=== PATIENT | male | born 1980 | race Caucasian/White ===

== ENCOUNTER 2018-06-16 17:36 | Emergency (ER) | payer BC ==
[2018-06-16 17:57] VITALS: BP 133/87
--- NOTE | 2018-06-16 18:12 | UC ---
Skin Complaint HPI - HPI Summary HPI Summary: C/O rash on lower back x several weeks, no itching. Itching on the arms during that time frame. - History of Current Complaint Chief Complaint: UCSkin Stated Complaint: RASH Hx Obtained From: Patient Onset/Duration: Gradual Onset, Lasting Weeks - 2 Timing: Constant Onset Severity: Mild Current Severity: Mild Pain Intensity: 0 Location: Discrete - middle lower back and right lower back. Character: Pruritus, Raised Aggravating Factor(s): Nothing Alleviating Factor(s): Nothing Associated Signs & Symptoms: Positive: Rash - Allergy/Home Medications Allergies/Adverse Reactions: Allergies Allergy/AdvReac Type Severity Reaction Status Date / Time No Known Allergies Allergy Verified 06/16/18 17:49 Home Medications: Home Medications Aspirin [Miguel Chewable Aspirin] 81 mg PO DAILY 06/16/18 [History Confirmed ] Atorvastatin* [Lipitor 40 MG*] 40 mg PO DAILY 06/16/18 [History Confirmed ] Flecainide TAB* [Tambocor TAB*] 50 mg PO BID 06/16/18 [History Confirmed ] Metoprolol Tartrate 25 mg PO BID 06/16/18 [History Confirmed 06/16/18] Nicotine Inhaler* 10 mg PO Q12HR PRN 06/16/18 [History Confirmed 06/16/18] Nicotine PATCH 21 MG/24 HR* 1 patch TOPICAL DAILY 06/16/18 [History Confirmed ] PMH/Surg Hx/FS Hx/Imm Hx Cardiovascular History: Cardiac Disease - Surgical History Surgical History: Yes Surgery Procedure, Year, and Place: Cardiac Cath 04/2018- No Stent- [facility] - Family History Known Family History: Positive: Cardiac Disease, Hypertension, Other - Positve FMH of myalgia - Social History Occupation: Employed Full-time Lives: With Family Alcohol Use: Occasionally Substance Use Type: None Smoking Status (MU): Light Every Day Tobacco Smoker Type: Cigarettes Amount Used/How Often: 6 cig/day Length of Time of Smoking/Using Tobacco: 23 Years Have You Smoked in the Last Year: Yes Household Exposure Type: Cigarettes Cessation Counseling: Patient Advised to Stop - Immunization History Most Recent Influenza Vaccination: Not the 2015/2016 Season Review of Systems All Other Systems Reviewed And Are Negative: Yes Skin: Positive: Rash Is Patient Immunocompromised?: No Physical Exam Triage Information Reviewed: Yes Appearance: Well-Appearing, No Pain Distress, Well-Nourished Vital Signs: Initial Vital Signs Temp 98.3 F 06/16/18 17:51 Pulse 74 06/16/18 17:51 Resp 16 06/16/18 17:51 BP 133/87 06/16/18 17:51 Pulse Ox 95 06/16/18 17:51 Vital Signs Reviewed: Yes Eyes: Positive: Conjunctiva Clear ENT: Positive: Pharynx normal, Nasal congestion, TMs normal Neck exam: Normal Respiratory: Positive: Lungs clear Cardiovascular Exam: Normal Musculoskeletal Exam: Normal Neurological Exam: Normal Psychological Exam: Normal Skin: Positive: Rashes - papular scaling rash middle lower back Course/Dx - Differential Diagnoses - Skin Complaint Differential Diagnoses: Contact Dermatitis, Drug Rash, Eczema, Local Allergic Reaction - Diagnoses Provider Diagnosis: Atopic dermatitis Discharge - Sign-Out/Discharge Documenting (check all that apply): Patient Departure All imaging exams completed and their final reports reviewed: No Studies - Discharge Plan Condition: Stable Disposition: HOME Prescriptions: Betamethasone Dipropionate 0.05 % TOPICAL BID #50 gm Patient Education Materials: Eczema (ED), Betamethasone Dipropionate (On the skin) Referrals: No Primary Care Phys,NOPCP [Primary Care Provider] - Additional Instructions: Smoking Cessation Tricks. 1. Cut down by 1 cigarette per day every 2-3 days. Write the number of smokes for that day on the calendar. 2. Identify triggers to smoking: after meals, on the phone, in the car, with coffee, on breaks at work, etc. 3. Formulate a plan with a behavior to replace the smoking. Fireballs in the car , doodle pad on the phone, flavored creamer for the coffee, go for a walk after a meal or on break at work. 4. For stress smokes do deep breathing relaxation. Breath deep in through the nose hold the breath in for a few seconds then breath out slowly through the mouth. - Billing Disposition and Condition Condition: STABLE Disposition: Home
== END 2018-06-16 18:47 | disposition home or self-care (01) ==
LOC: UCCORT 17:36
DX: L20.9 Atopic dermatitis, unspecified (principal); I51.9 Heart disease, unspecified; F17.210 Nicotine dependence, cigarettes, uncomplicated
CPT/HCPCS: 99212; G0463